=== PATIENT | female | born 1990 | race Caucasian/White ===

== ENCOUNTER 2022-10-20 17:49 | Outpatient (CLI) | payer OTHER, SELFPAY | END 2022-10-20 17:50 | disposition home or self-care (01) | LOC: NFLDUCREF 17:50 | PROVIDERS: PCP Internal Medicine; Visit Provider Nurse Practitioner Family | DX: R23.8 Other skin changes (principal); B07.9 Viral wart, unspecified | CPT/HCPCS: 86592 ==

== ENCOUNTER 2023-03-30 07:35 | Outpatient (CLI) | payer OTHER, SELFPAY | END 2023-03-30 07:36 | disposition home or self-care (01) | LOC: NFLDREF 03-31 06:41 | PROVIDERS: PCP Internal Medicine; Referring Provider Internal Medicine; Visit Provider Internal Medicine | DX: Z13.6 Encounter for screening for cardiovascular disorders (principal); Z13.1 Encounter for screening for diabetes mellitus | CPT/HCPCS: 80061; 82947 ==

== ENCOUNTER 2023-06-07 08:00 | Outpatient (RCR) | payer OTHER, SELFPAY | END 2023-06-07 08:41 | disposition home or self-care (01) | PROVIDERS: PCP Internal Medicine; Visit Provider Internal Medicine | DX: M89.8X1 Other specified disorders of bone, shoulder (principal); Z51.89 Encounter for other specified aftercare | CPT/HCPCS: 97110; 97161 ==

== ENCOUNTER 2024-05-03 09:37 | Outpatient (CLI) | payer BC, SELFPAY ==
--- OUTSIDE RECORDS SUMMARY | 2024-05-03 14:27 | XMS_ITS | Clinical Summary ---
Author Organization [facility] Address [place], [place] [address] Care Team Providers Care Senior Information Security Analyst Name Role Phone Pcp, No Primary Care Provider Unavailabl e Allergies No known active allergies Medications Medication Sig Dispensed Refills Start Date End Date Status mecobalamin, vitamin B12, 1,000 mcg chew 05/31/2022 Active Emgality Pen 120 mg/mL pen INJECT 1 PEN SUBCUTANEOUSLY ONCE A MONTH 08/15/2022 Active pregabalin (LYRICA) 75 mg capsule Take 75 mg by mouth two times daily. 08/24/2022 Active Immunizations Name Administration Dates Next Due DTP 02/25/2021, 4,12/27/1990,01/05,1989,1989 Hepatitis A (Adult) 03/25/2010,08/24/2009 Hepatitis B, Unspecified 07/10/1992,12/04/1991,0 10/30/1991 Hib Conjugate, Unspecified 11/07/1990 Inactivated Polio Vaccine 08/24/2009 MENINGOCOCCAL VACCINE 2 VIAL [id number] (MENVEO) 03/21/2008 MMR 07/19/2001,11/07/1990 Meningococcal Vaccine (Menomune) 03/21/2008 Oral Polio Vaccine 11/15/1993, 1,1989,08/31 Td (Age >=7 Years) 04/04/2003 Tdap 08/24/2009 Tetanus Toxoid 04/04/2003 Typhoid (oral) 08/24/2009 Social History Tobacco Use Types Packs/Day Years Used Date Smoking Tobacco: Never Smokeless Tobacco: Never Tobacco Cessation:Counseling Given: Yes Alcohol Use Standard Drinks/Week Comments Not Currently 0 (1 standard drink = 0.6 oz pur e alcohol) PHQ-2 Answer Date Recorded PHQ-2 TOTAL SCORE 0 12/19/2022 Social Connections Answer Date Recorded Frequency of Communication with Friends and Fami ly Not on file 09/12/2022 Sex and Gender Information Value Date Recorded Sex Assigned at Not on file Gender Identity Not on file Sexual Orientation Not on file Obstetrics History Last Filed Vital Signs Vital Sign Reading Time Taken Comments Blood Pressure 117/73 09/12/2022 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 CARE COACH Pulse 88 09/12/2022 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 CARE COACH Temperature - - Respiratory Rate - - Oxygen Saturation 97% 09/12/2022 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 CARE COACH Inhaled Oxygen Concentration - - Weight 68.1 kg (150 lb 3.2 oz) 09/12/2022 7:15 A M HEALTH CARE COACH Height - - Body Mass Index - - Plan of Treatment Health Maintenance Due Date Last Done Comments HIV for age 15-65 2004 BMI (ht and wt on same day) for age 18+ 2007 Hepatitis C screening for ag e 18-79 2007 Pap test for age 21-65 2010 Tetanus booster 08/24/2019 08/24/2009, 04/04/2003 Depression screening for age 12+ 12/20/2023 12/19/2022, 11/03/2022, 09/12/2022 COVID-19 vaccine series ( season) 2024 05/29/2022 Influenza for age 9-49 03/31/2024 Tdap Completed 08/24/2009 Pneumococcal series for age 6-64 Aged Out No longer eligible b ased on patient's age to complete this topic Care Teams Senior Information Security Analyst Relationship Specialty Start Date End Date Pcp, No . PCP - General 09/08/22
== END 2024-05-03 09:38 | disposition home or self-care (01) ==
LOC: NFLDREF 14:25
PROVIDERS: PCP Internal Medicine; Referring Provider Internal Medicine; Visit Provider Internal Medicine
DX: Z78.9 Other specified health status (principal); Z13.21 Encounter for screening for nutritional disorder
CPT/HCPCS: 82306; 82607

== ENCOUNTER 2024-06-17 08:00 | Outpatient (RCR) | payer BC, SELFPAY | END 2024-09-16 08:32 | disposition home or self-care (01) | PROVIDERS: PCP Internal Medicine; Visit Provider Family Medicine | DX: M54.50 Low back pain, unspecified (principal); Z51.89 Encounter for other specified aftercare | CPT/HCPCS: 97110; 97140; 97161 ==

== ENCOUNTER 2025-01-13 14:15 | Outpatient (RCR) | payer BC, SELFPAY | END 2025-01-13 15:30 | disposition home or self-care (01) | PROVIDERS: PCP Internal Medicine; Visit Provider Internal Medicine | DX: M25.561 Pain in right knee (principal); Z51.89 Encounter for other specified aftercare | CPT/HCPCS: 97110; 97112; 97161 ==

== ENCOUNTER 2025-05-05 08:12 | Outpatient (CLI) | payer BC, SELFPAY | END 2025-05-05 08:13 | disposition home or self-care (01) | LOC: NFLDREF 05-06 13:42 | PROVIDERS: PCP Internal Medicine; Referring Provider Internal Medicine; Visit Provider Internal Medicine | DX: Z78.9 Other specified health status (principal) | CPT/HCPCS: 82306; 82607 ==